=== PATIENT | female | born 1990 | race African-American/Black ===

== ENCOUNTER 2023-03-06 17:33 | Emergency (ER) | payer MEDICAID, SELFPAY ==
[2023-03-06 17:44] VITALS: BP 126/78; RESP 20; TEMP 36.8; O2SAT 98; BMI 39.5
--- NOTE | 2023-03-06 18:14 | ED_ITS ---
HPI - Female Genitourinary General Time Seen by Provider: 18:14 Date Seen: 03/06/23 Chief complaint: Urogenital Problems, Female Stated complaint: vaginal itching Time Seen by Provider: 03/06/23 18:13 Source: patient and RN notes reviewed Mode of arrival: ambulatory Limitations: no limitations History of Present Illness HPI Narrative: This 32-year-old female is about 36 weeks , states her due date is April 03. She recently moved from [place] to [place], will be planning on delivering here at [place]. She will be following up at [facility]. She is currently with her 4th child, she will have for boys after his . She is coming in because she feels an area that is protruding from her rectum, she feels it with wiping, wonders if she has had a hemorrhoid. She also is concerned as she feels itchy and somewhat swollen externally around the labia. At the end of January, she completed of Monistat 7 course as she was having thicker whitish discharge and was itching. Symptoms resolved for few days but started to return. 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 She is feeling more pelvic pressure but no contractions or labor. When she urinates she will feel little discomfort externally over the labia from the urine but no dysuria itself. She feels the baby moving. She does not have any history of STIs nor any acute concerns. She has not had intercourse for the duration of this . She admits the vaginal discharge is diminished from what it was in January. elicited complaint: vaginal discharge, genital swelling and genital itching Expected Date of Delivery: 04/03/23 Related Data : 4 Para: 3 Home Medications Medication Instructions Recorded Confirmed comb no.42-folic acid PO 03/06/23 Allergies Allergy/AdvReac Type Severity Reaction Status Date / Time No Known Drug Allergies Allergy Verified 03/06/23 17:43 Review of Systems Narrative: As per HPI. PFSH PFS Social History Smoking Status: Former smoker Do you use any of these nicotine containing products: None Second hand tobacco smoke exposure: No How often do you have a drink containing alcohol: monthly or less How many standard drinks containing alcohol do you have on a typical day: 1 or 2 How often do you have six or more drinks on one occasion: Never AUDIT-C Alcohol total score: 1 Non-prescribed substance use: denies use service: No Exam Const: Vital Signs, click to edit/add: Vital Signs - 24 hr 03/06/23 17:44 Temperature 98.2 F Respiratory Rate 20 Blood Pressure [Le ft Forearm] 126/78 Pulse Oximetry 98 Oxygen Delivery Me thod Room Air This 32-year-old female is gravid, abdomen is nontender. Palpate no inguinal adenopathy. External genitalia appear normal, see no vaginal rash or irritation. Despite her feeling like her labia are swollen, I do not perceive any significant peroneal swelling or labial swelling. There is certainly no rash, no lesions or vesicles or ulcerations. There is a scant amount of whitish discharge that actually looks normal, note no odor. Speculum exam is done and she has normal healthy pink looking vaginal tissue with scant amount of nonodorous whitish discharge. She was seen in exam room 4, cervix is higher than what I can reach with the speculum. Bimanual exam done and cervix is high in posterior, cannot reach it, certainly does not feel significantly opened. She has a non thrombosed, non erythematous hemorrhoid noted. Documenting provider has reviewed patient's vital signs: yes Course Course ED Course: Wet prep was collected looking for bacterial vaginosis or yeast. I see no evidence of any other type of infection, no evidence of any lesions that would suggest an STI like herpes. We reviewed the benign hemorrhoid, did discuss her concerns with wiping. Did recommend getting some sensitive baby wipes for cleaning. Reevaluation(s) Time of Reevaluation #1: 19:18 Reevaluation #1: Reviewed with patient that her wet prep is not showing any evidence of yeast or bacterial vaginosis. She will provide a UA. I am awaiting to confer with OB on-call but she is currently delivering a baby. Time of Reevaluation #2: 20:21 Reevaluation #2: Patient had 2+ glucose in her urine, is concentrated. Confirmed normal Accu- Chek of 114. She states she did do the glucose drink during and was normal. She is not diabetic. Have spoken with Dr. Angulo from OB. She does not have anything else recommend, states to offer the patient reassurance. There can be hormonal changes and pelvic pressure changes from the . This was relayed to the patient. We did review her UA. Vital Signs Vital signs: Initial Vital Signs Temperature 98.2 F 03/06/23 17:44 Temperature Source Temporal Artery Scan 03/06/23 17:44 Pulse Rhythm Regular 03/06/23 17:44 Respiratory Rate 20 03/06/23 17:44 Blood Pressure 126/78 03/06/23 17:44 Blood Pressure Mean 94 03/06/23 17:44 Blood Pressure Position Sitting 03/06/23 17:44 Pulse Oximetry 98 03/06/23 17:44 Oxygen Delivery Method Room Air 03/06/23 17:44 Vital Signs Temperature 98.2 F 03/06/23 17:44 Respiratory Rate 20 03/06/23 17:44 Blood Pressure 126/78 03/06/23 17:44 Pulse Oximetry 98 03/06/23 17:44 Oxygen Delivery Method Room Air 03/06/23 17:44 Temperature 98.2 F 03/06/23 17:44 Respiratory Rate 20 03/06/23 17:44 Blood Pressure 126/78 03/06/23 17:44 Pulse Oximetry 98 03/06/23 17:44 Oxygen Delivery Method Room Air 03/06/23 17:44 MDM - Female Genitourinary Lab Data Attestation: I reviewed the patient's lab results. Labs: Lab Results 03/06/23 03/06/23 Range/Units 18:24 19:31 Urine Color Yellow (Yellow) Urine Appearance Clear (Clear) Urine pH 5.5 (5.0-8.5) Ur Specific [place] >= 1.030 (1.000-1.030) Urine Protein 2+ A (Negative) Urine Glucose (UA) 2+ A (Negative) Urine Ketones Negative (Negative) Urine Blood Negative (Negative) Urine Nitrite Negative (Negative) Urine Bilirubin Negative (Negative) Urine Urobilinogen 1.0 (0.2-1.0) Ur Leukocyte Esterase Negative (Negative) Urine RBC 0-2 (0-2) Urine WBC 2-5 (0-5) Ur Squamous Epith Cells Moderate A (None-Few) Urine Bacteria Moderate A (None) Vaginal Trichomonas No Trichomonas Seen (None Seen) Vaginal Yeast No Yeast Seen (None Seen) Vaginal Clue Cells <20% Clue Cells Seen (None Seen) Critical Care Time Critical Care Time Critical Care Time: No Discharge Plan Discharge Clinical Impression: Perineal irritation in female, , Hemorrhoid Patient Disposition: Home, Self-Care Condition: Stable Instructions: Hemorrhoids (ED), at 35 to 38 Weeks (ED) Additional Instructions: Follow-up in clinic, get established as soon as possible if you have not done so. If you are having increasing symptoms such as vaginal irritation or drainage, do recommend recheck in clinic this week. Activity Level: Activity as Tolerated Prescriptions: No Action comb no.42-folic acid PO Follow Up/Referrals: Provider,Not a Local [Primary Care Provider] - Stand Alone Forms: Zeer Info Instructions
[2023-03-06 18:46] LABS: Trichomonas No Trichomonas Seen (None Seen); Yeast No Yeast Seen (None Seen)
[2023-03-06 18:47] LABS: Clue Cells <20% Clue Cells Seen (None Seen)
[2023-03-06 19:38] LABS: Appearance Urine Clear (Clear); Bilirubin Urine Negative (Negative); Blood Urine Negative (Negative); Color Urine Yellow (Yellow); Glucose Urine 2+ (Negative); Ketones Urine Negative (Negative); Leukocyte Esterase Urine Negative (Negative); Nitrite Urine Negative (Negative); Protein Urine 2+ (Negative); Specific Gravity Urine >= 1.030 (1.000-1.030); pH Urine 5.5 (5.0-8.5)
[2023-03-06 19:47] LABS: Bacteria Urine Moderate; RBC Urine 0-2 (0-2); Squamous Epithelial Cell Urine Moderate (None-Few)
== END 2023-03-06 20:41 | disposition home or self-care (01) ==
PROVIDERS: Emergency Provider Family Medicine
DX: R10.2 Pelvic and perineal pain (principal); K64.8 Other hemorrhoids; Z3A.36 36 weeks gestation of pregnancy
CPT/HCPCS: 81001; 87086; 87210; 99283

== ENCOUNTER 2023-03-13 12:41 | Outpatient (CLI) | payer MEDICAID, SELFPAY | END 2023-03-13 12:42 | disposition home or self-care (01) | LOC: AMB 03-15 15:27 | PROVIDERS: Visit Provider Student in an Organized Health Care Education/Training Program | DX: O47.03 False labor before 37 completed weeks of gestation, third trimester (principal); Z3A.36 36 weeks gestation of pregnancy | CPT/HCPCS: A0425; A0427 ==

== ENCOUNTER 2023-03-13 14:25 | Inpatient (IN) | payer MEDICAID, SELFPAY ==
[2023-03-13] VITALS (20 sets, daily range): BP systolic 109–143; BP diastolic 63–95; PULSE 66–100; RESP 16–17; TEMP 36.6–37.4; O2SAT 81–99
--- NOTE | 2023-03-13 13:29 | CRLHL7_ITS ---
For Patients: As a result of the Century Cures Act, medical imaging exams and procedure reports are released immediately into your electronic medical record. You may view this report before your referring provider. If you have questions, please contact your health care provider. INDICATION: LABOR, LIMITED CARE, GROWL AND EVAL PLACENTA COMPARISON: Not available TECHNIQUE: Real time guardado scale imaging of the fetus was performed. FINDINGS: Sonographic imaging demonstrates a single living intrauterine gestation. Fetus demonstrates a regular cardiac rate of 155 beats per minute. Fetus has a vertex position. The placenta lies fundal posterior. Amniotic fluid volume appears normal and there is a single deepest vertical pocket: 4.3 cm. The estimated weight is 4128gm which lies at the greater than 97th %. BPD, HC and AC all greater than 97th percentile. FL less than 3rd percentile. The HC/AC ratio measures 1.06 range (0.92-1.05). hydrocephalus is present with the cerebral ventricles measuring approximately 4 cm. Cardiac anomalies are also suspected on the cine clips. The cervix is completely open and contains fluid/debris. IMPRESSION: Completely open cervix which is filled with fluid and debris. Amniotic fluid volume appears normal with SDP 4.3 cm. Placenta is fundal and posterior. Sonographic gestational age 36 weeks 6 days and sonographic due date 04/04/2023. Estimated weight greater than 97th percentile. Abdominal circumference greater than 97th percentile. hydrocephalus and probable cardiac anomalies. Dictated by Shashi Santos MD @ 03/13/2023 3:00:31 PM (Electronically Signed)
[2023-03-13 14:10] LABS: Appearance Urine Cloudy (Clear); Bilirubin Urine Negative (Negative); Blood Urine Negative (Negative); Color Urine Dark yellow (Yellow); Glucose Urine Trace (Negative); Ketones Urine Negative (Negative); Leukocyte Esterase Urine Negative (Negative); Nitrite Urine Negative (Negative); Protein Urine 1+ (Negative); Specific Gravity Urine >= 1.030 (1.000-1.030); Urobilinogen Urine 0.2 (0.2-1.0)
[2023-03-13 14:36] LABS: WBC Clumps Urine Few
[2023-03-13 14:37] LABS: Bacteria Urine Moderate; Fine Granular Casts Urine Moderate; Squamous Epithelial Cell Urine Moderate (None-Few)
[2023-03-13] MEDS: LACTATED RINGERS 1000 ML 1,000 ML 125 ML IV ×2 (14:40→15:07)
[2023-03-13 14:58] LABS: Basophils Absolute Auto 0.04 K/uL (0.00-0.30); Basophils Percent Auto 0.4 % (0.0-3.0); Eosinophils Absolute Auto 0.06 K/uL (0.00-0.50); Eosinophils Percent Auto 0.6 % (0.0-7.0); Immature Granulocytes Abs Auto 0.47 K/uL (0.00-0.30); Immature Granulocytes Pct Auto 4.8 %; Mean Corpuscular HGB Conc 31 gm/dL (32-36); Mean Corpuscular Hemoglobin 26 pg (26-34); Mean Corpuscular Volume 82 fL (80-100); Monocytes Percent Auto 9.5 % (0.0-11.0); Neutrophils Absolute Auto 6.78 K/uL (1.7-7.0); Neutrophils Percent Auto 69.7 % (42.0-72.0); Platelet Count* 235 K/uL (140-440); RDW Coefficient of Variation % 15.4 % (11.5-15.5); Red Blood Count 3.92 m/uL (4.00-5.20); White Blood Count* 9.73 K/uL (4.50-11.00)
[2023-03-13 14:59] LABS: Slide Review Reflex Yes
[2023-03-13 15:01] LABS: Amphetamine Screen Urine Negative (Negative); Barbiturate Screen Urine Negative (Negative); Benzodiazepines Screen Urine Negative (Negative); Cannabinoid Screen Urine Negative (Negative); Cocaine Screen Urine Negative (Negative); Methadone Screen Urine Negative (Negative); Methamphetamines Screen Urine Negative (Negative); Opiate Screen Urine Negative (Negative); Oxycodone Screen Urine Negative (Negative); Phencyclidine Screen Urine Negative (Negative); Tricyclic Antidepressant Urine Negative (Negative)
--- NOTE | 2023-03-13 15:03 | PM.OBHPLI ---
OB - H&P: HPI Labor/Induction History of Present Illness Date Seen: 03/13/23 Chief Complaint: The patient is a 32 year old 4 para 3003 at 37 0/7 weeks gestation by late second trimester US, who presents in labor with desire to TOLAC. Patient with poor care, very difficult social situation. Patient recently moved to [place] from [place]. Started care late at [facility] in [place] and then moved to [facility] in [place]. is dated by US at 26 6/7 weeks, that showed a low lying posterior placenta, suboptimal visualization of nose, lips, spine, remainder of anatomy normal. There is a follow-up ultrasound documented from 01/22/2023, gestational age described as 29 weeks 6 days, posterior placenta, not previa, growth 39 percentile. Patient states that uterine contractions started since yesterday and progressed today until she was unable to tolerate them. Patient has no support system and no transportation. Patient called 911 and was brought in to the closest hospital. Upon evaluation patient is found with regular painful uterine contractions and cervix dilated at 7cm. At arrival I had asked for performance of US due to no evidence of care, I was called in by US analytical laboratory technician and I was told that baby had hydrocephalus, short femur and that she could not evaluate cardiac structures well. I tried to clarify with patient as she told me she was seeing a specialist, patient tells me that she had US and was told everything with baby was normal. Care labs: Had 2 appointments with [facility], then 2 appointments with [facility]: 01/13/2023: Blood type and group O positive, antibody screen negative, hepatitis-B surface antigen nonreactive, hepatitis-C antibody nonreactive, treponema pallidum nonreactive, hemoglobin 10.3, platelets [id number], protein in urine 30, glucose in urine 100, ketones negative, nitrates negative, rubella immune, chlamydia and gonorrhea negative, varicella non immune, HIV non reactive 02/05/2023: 1 hour GTT: 185, no 3 hour GTT performed. EKG: Normal sinus rhythm LMP uncertain 07/22/22 Chief complaint: maternity : 4 Para: 3 Narrative: Diego Hinojosa is a 32 year old female History of Present Dating criteria: other (Late 2nd trimester ultrasound) care: limited care Ultrasounds: normal mid trimester US Abnormal ultrasound findings: Hydrocephalus, short femur. complications comment: Limited care, GDM uncontrolled-untreated, previous C/Sx1 Narrative: Limited care,Difficult social situation, no transportation hydrocephalus-diagnosed today, macrosomia GDM-uncontrolled, untreated Previous C/S x 1, desiring VTOLAC History x 1 BA-rare use of albuterol History of cholecystectomy Labs Blood type: O (+) positive Rubella: immune RPR/VDLR: nonreactive GBS status: unknown HBsAG: negative Review of Systems Status of ROS: Reports: 10 or more systems reviewed and unremarkable except as noted in History and below Meds Home Medications and Allergies Home Medications Medication Instructions Recorded Confirmed Type comb no.42-folic acid PO 03/06/23 History Allergies Allergy/AdvReac Type Severity Reaction Status Date / Time No Known Drug Allergies Allergy Verified 03/13/23 13:37 OB - H&P: Exam Physical Exam: Vital signs: Pulse BP 91 136/79 03/13/23 13:33 03/13/23 13:33 Narrative: VITAL SIGNS: As noted above. GENERAL APPEARANCE: Alert, cooperative female in no acute distress. MOOD & AFFECT: Normal. ABDOMEN: Gravid, non tender : 7cm/100%/Vx/-5 EXTREMITIES: Nonedematous. Well perfused. Nontender. OB - Results Labs Labs: Short CBC 03/13/23 Range/Units 14:40 WBC 9.73 (4.50-11.00) K/uL Hgb 10.0 L (12.0-16.0) gm/dL Hct 32.0 L (33.0-51.0) % Plt Count 235 (140-440) K/uL Urine 03/13/23 Range/Units Unknown Urine Color Dark yellow (Yellow) Urine Appearance Cloudy A (Clear) Urine pH 6.0 (5.0-8.5) Ur Specific [place] >= 1.030 (1.000-1.030) Urine Protein 1+ A (Negative) Urine Glucose (UA) Trace A (Negative) Imaging OB US: Attestation: I have reviewed the pertinent imaging results. OB - Problem Based A/P Additional Plan (1) hydrocephalus affecting management of mother in [place] : Status: Acute Plan Recommend delivery via delivery due to diagnosis of hydrocephalus. Discussed that baby will need to be transferred to a higher level of care, she is upset about this. I discussed with her that ideally we would like to transfer both of them but unfortunately she is in labor. Discussed repeat procedure, risks of surgery, patient accepts blood transfusions in the case of an emergency. Discussed risks of infection, damage to nearby organs, blood clots. Informed consent is obtained and patient agrees to proceed with surgery.
[2023-03-13 15:04] LABS: Albumin* 3.7 g/dL (3.3-5.0); Chloride* 105 mmol/L (96-114); Sodium* 135 mmol/L (135-149)
[2023-03-13 15:05] LABS: Potassium* 4.2 mmol/L (3.6-5.1)
[2023-03-13 15:07] LABS: Anion Gap 8 mEq/L (7-15); Aspartate Amino Transferase* 24 U/L (12-35); Bilirubin Total* 0.2 mg/dL (0.1-1.5); Carbon Dioxide* 22 mmol/L (20-32); Creatinine* 0.5 mg/dL (0.5-1.5); Estimated Glomerular Filt Rate 128 ml/min; Total Protein* 7.1 g/dL (6.0-8.3)
[2023-03-13 15:08] LABS: Alanine Aminotransferase* 15 U/L (4-35); Alkaline Phosphatase* 442 U/L (40-150); Blood Urea Nitrogen* 5 mg/dL (5-24); Calcium* 9.8 mg/dL (8.4-10.6); Glucose* 168 mg/dL (60-115)
[2023-03-13] MEDS: INSULIN INF 100 UNIT/100 ML 100 UNIT/100 ML BAG IVPB (15:09)
[2023-03-13] MEDS: AZITHROMYCIN 500 MG in 0.9 % SODIUM CHLORIDE 250 ml 250 ML 255 MG IVPB (15:10)
[2023-03-13] MEDS: CEFAZOLIN 1 GM inj 3 GM IVP (16:02)
[2023-03-13] MEDS: METHYLERGONOVINE MALEATE 0.2 MG/ML INJ IV (16:41)
[2023-03-13] MEDS: LACTATED RINGERS 1000 ML 1,000 ML IV (17:15)
--- NOTE | 2023-03-13 17:58 | P.OBPRC_ITS ---
Procedure Date of procedure: 03/13/23 Pre-op diagnosis: Previous section x1, in labor, hydrocephalus Post-op diagnosis: same Procedure Done: Global Will [facility] bill your pro fee for this procedure?: Yes Blood Loss Measurement Type: QBL (430) Bakri Used: No IV fluids (mL): 1,400 Urine Output (mL): 300 Urine Output Comment: Concentrated urine Surgeon: Marquita Thornton MD Veterinary Pharmacologist: Clara Rodriguez MD Anesthesia Type: Spinal Findings: FINDINGS: Live-born male , Vertex presentation, Apgars 6 and 7 at 1 and 5 minutes respectively. weight pending. Thick serosal adhesion between lower uterine segment left side and bladder serosa. Procedure Name: Repeat low vertical section Procedure Description: PROCEDURE: After obtaining informed consent, the patient was taken to the operating room where spinal anesthesia was obtained and found to be adequate. She was prepared and draped in the normal sterile fashion in the dorsal supine position with a leftward tilt. A Pfannenstiel skin incision was made with a scalpel along the line of the patient's previous Pfannenstiel scar. This incision was carried down to the underlying layer of fascia with the scalpel and Bovie. The fascia was incised in the midline and the incision extended laterally. The superior and inferior aspects of the fascial incision were grasped with Carlos Manuel clamps, elevated and the underlying rectus muscles dissected off sharply and with electrocautery. The rectus muscles were then in the midline. Thick adhesion from left side of lower uterine segment to bladder serosa, a clear window was found between adhesion and serosa posteriorly, utilizing Marybeth clamps the adhesion was clamped, cut and suture ligated. Hemostasis was secured. I attempted performance of a bladder flap but adhesions seemed thickened and bleed easily, decision was made not to proceed with bladder flap. The Robin O retractor was then placed into the incision. The lower uterine segment was then incised in a vertical fashion with the scalpel and extended cephalad and caudally. Upon entry into the uterus, meconium stained amniotic fluid was noted. The 's head was delivered atraumatically, followed by the remainder of the 's body. The cord was doubly clamped and cut, and the was immediately handed off the field for evaluation. The placenta was delivered spontaneously with umbilical cord traction and fundal massage. The uterus was cleared of all clots and debris. The uterus was exteriorized. The uterine incision was reapproximated in a running locking fashion with 0 Vicryl suture in 3 layers. There was a small extension horizontally of the incision towards the right lower uterine segment of about 2- 3 cm. This was repaired with Vicryl 0 suture and hemostasis secured. The vertex of the hysterotomy was more than 4-5 cm from cornua. Although I would NOT recommend for patient to labor again due to hysterotomy extension. Uterus had episodes of poor tone, this was treated with IV Oxytocin, 800mcg of buccal Cytotec and 1 dose of Methergine. I had also asked for 1g of TXA after cord clamp since I was preparing for heavy bleeding in the setting of overly distended uterus. In total 2g of TXA were utilized. [place] was utilized to further secure small oozing mostly from adhesion areas. Again, hemostasis secured. The gutters were inspected and cleared of blood clots. All instruments and retractors were removed. The anterior peritoneum was reapproximated in a running fashion with a 3-0 Vicryl suture. The subfascial tissues were carefully inspected and hemostasis assured. The fascia was reapproximated in a running fashion with a looped 0 PDS suture. The subcutaneous tissues were copiously irrigated. Hemostasis was assured. The subcutaneous fat layer was reapproximated with sutures of 3-0 Vicryl. The skin was closed in a subcuticular fashion with 4-0 Monocryl. LiquiBand and dressing were applied. The patient tolerated the procedure well. Sponge, lap, needle, and instrument counts were reported as correct x2. The patient was taken to the recovery room, awake, and in stable condition. She did receive 2 grams of IV Ancef and 500mg of Azithromycin preoperatively. Complications: None Pathology: specimen obtained, sent to pathology (Placenta to pathology, placental cultures also obtained and cytogenetic also ordered) Surgery Debrief Performed: Yes Surgery Debrief Comment: Clarified procedure performed, QBL, pathology specimen, answered questions or concerns Condition: stable Disposition: floor
--- NOTE | 2023-03-13 18:48 | W.ANESCHARGE ---
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
--- NOTE | 2023-03-13 18:49 | P.NB_ITS ---
Nerve Block Nerve Block Time Seen by Provider: 17:50 Date Seen: 03/13/23 Type of block requested by surgeon for post-operative analgesia: TAP Side: bilateral Time out performed: Yes Verification of patient name: Yes Verification of date of : Yes Site marking: site marked Name of person performing procedure: Hunter Nadja Continuous monitoring Was continuous monitoring of O2 sat, B/P, conveyor monitor, recorded every 15 minutes?: Yes Procedure Checklist: sterile prep, needles and gloves Ultrasound guided. Images saved: Yes Medications given in 5ml increments after negative aspiration: Marcaine %: 0.25 mL: 30 Needle gauge: 21 and Exparel mL: 10 Needle gauge: 21 Patient tolerated procedure well: Yes Additional comments: Injected in 5mL increments after negative aspiration Block Charges Block Charge (with Pro Fee): TAP Bilateral Use of Ultrasound Machine for Block: Yes- US Guidance/pain block
[2023-03-13] MEDS: KETOROLAC 30 MG/ML inj IVP (23:06)
[2023-03-14] VITALS (23 sets, daily range): BP systolic 107–139; BP diastolic 70–83; PULSE 86–97; RESP 16–20; TEMP 36.7–37.3; O2SAT 95–98
[2023-03-14] MEDS: KETOROLAC 30 MG/ML inj IVP ×4 (05:07→22:44)
[2023-03-14] MEDS: ENOXAPARIN 40 MG/0.4 ML INJ SUBCUT (05:31)
[2023-03-14] MEDS: ACETAMINOPHEN 500 MG TABLET 1000 MG PO ×3 (06:42→22:44)
--- NOTE | 2023-03-14 07:40 | PC.NURSE ---
This RN submitted a public health nurse referral form on the [facility] health website on 03/14/23 at 0740. A confirmation screen popped up when RN hit submit that said Your Form Has Been Submitted Successfully.
[2023-03-14] MEDS: DOCUSATE SODIUM 100 MG CAPSULE PO (08:09)
[2023-03-14] MEDS: diphenhydrAMINE 50 MG/ML inj 12.5 MG IVP (08:09)
--- NOTE | 2023-03-14 08:18 | PM.OBPNVD1 ---
OB - PN:Subj Subjective Time Seen by Provider: 08:18 Date Seen: 03/14/23 Narrative: Ms. Hinojosa is a 32yo seen on POD1 from repeat delivery. Delivery was indicated in the setting of labor, with newly diagnosed ventriculomegaly and hydrocephalus. A low vertical uterine incision was made, delivery itself was uncomplicated. She had intemittent atony in the OR, without PPH, where uterotonic agents and TXA were administered. Diego is feeling well this morning. She notes her pain is well controlled. Small volume vaginal bleeding. Has been able to tolerate p.o. solids and liquids, notes nausea/vomiting. She has been up to ambulate x1 without dizziness or lightheadedness. Taveras catheter is in place, adequate urine output. Passing gas. No lower extremity pain, erythema or swelling. Diego intends to breastfeed baby . She has not yet started pumping - encouraged her to do so every 2-3 hours to stimulate her milk to come in. She notes is doing very well at the [facility]. He is breathing on his own and his platelets have reportedly stabilized. She notes they are doing a brain MRI today and will likely proceed with shunting. Support provided. Diego affirmed that she does not have reliable transportation and this was a significant barrier to care. She does have stable housing, where she lives with her other 3 children (ages 3 - 15). She notes having no social support or family locally, FOB rasta Cuevas is not currently involved. She is open to visiting with our drug abuse social worker for resources/support, I encouraged her to do the same with the [facility] for when discharge is upcoming (particularly with car seat/transportation for him home eventually). OB - PN: Obj Exam Physical Exam: Vital signs: Temp Pulse Resp BP Pulse Ox O2 Del Method 98.9 F 86 17 113/74 97 Room Air 03/14/23 05:00 03/14/23 07:58 03/14/23 07:58 03/14/23 07:58 03/14/23 07:58 03/14/23 07:58 Narrative: VITAL SIGNS: Noted above. GENERAL APPEARANCE: Alert, cooperative female in no acute distress. ABDOMEN: Soft, nondistended and nontender. The uterine fundus is palpable at umbilicus. incision is covered with dressing, clean/dry. EXTREMITIES: Nonedematous, well-perfused, nontender bilaterally. Urinary Catheter Management: Urethral: Cath placed during this visit: yes Urethral indwelling: Yes Reason for continuing: surgical procedure Insertion date: 03/13/23 OB - PN: Obj Data Labs Labs: Laboratory Results - last 24 hr 03/13/23 03/13/23 03/14/23 14:40 Unknown 07:20 WBC 9.73 RBC 3.92 L Hgb 10.0 L 9.0 L Hct 32.0 L MCV 82 MCH 26 MCHC 31 L RDW Coeff of Live 15.4 Plt Count 235 Neut % (Auto) 69.7 Lymph % (Auto) 15.0 L [place] % (Auto) 9.5 Eos % (Auto) 0.6 Baso % (Auto) 0.4 Neut # (Auto) 6.78 Lymph # (Auto) 1.50 [place] # (Auto) 0.90 Eos # (Auto) 0.06 Baso # (Auto) 0.04 Abs Immat Gran (auto) 0.47 H Imm/Tot Granulo (auto) 4.8 Sodium 135 Potassium 4.2 Chloride 105 Carbon Dioxide 22 Anion Gap 8 BUN 5 Creatinine 0.5 Estimated GFR 128 Glucose 168 H Calcium 9.8 Total Bilirubin 0.2 AST 24 ALT 15 Alkaline Phosphatase 442 H Total Protein 7.1 Albumin 3.7 Urine Color Dark yellow Urine Appearance Cloudy A Urine pH 6.0 Ur Specific [place] >= 1.030 Urine Protein 1+ A Urine Glucose (UA) Trace A Urine Ketones Negative Urine Blood Negative Urine Nitrite Negative Urine Bilirubin Negative Urine Urobilinogen 0.2 Ur Leukocyte Esterase Negative Urine RBC 2-5 A Urine WBC 5-10 A Urine WBC Clumps Few A Ur Squamous Epith Cells Moderate A Urine Bacteria Moderate A Fine Granular Casts Moderate A Urine Opiates Screen Negative Ur Oxycodone Screen Negative Urine Methadone Screen Negative Ur Propoxyphene Screen Negative Ur Barbiturates Screen Negative U Tricyclic Antidepress Negative Ur Phencyclidine Scrn Negative Ur Amphetamines Screen Negative U Methamphetamines Scrn Negative U Benzodiazepines Scrn Negative Urine Cocaine Screen Negative U Marijuana (THC) Screen Negative Blood Type O Positive Antibody Screen NEGATIVE Crossmatch (AHG) See Detail OB - PN: A/P Delivery Assessment and Plan (1) hydrocephalus affecting management of mother in shannon : Status: Acute (2) Elevated blood pressure reading without diagnosis of hypertension: Status: Acute (3) Previous section: Status: Acute (4) Bronchial asthma: Status: Acute (5) Elevated random blood glucose level: Status: Acute Plan day: 1 Comments: Ms. Hinojosa is a 32yo seen on POD1 from repeat performed in the setting of labor with hydrocephalus/ventriculomegaly. From a post-op perspective, Diego is doing very well and meeting appropriate milestones. Encouraged her to eat breakfast, ambulate and get taveras removed this morning. Encoraged Diego and bedside RNs to work on support with pumping. Problems/plans as below: - Anemia: She does have evidence of acute on chronic anemia, Hgb is 9 (from 10) today. Plan to start iron supplement and encouraged iron rich foods. VS WNL, adequate UOP. Ambulated without difficult x1, plan to continue to advance activity this morning. Recheck Hgb PRN. - Elevated BP: She had several mild range BPs but does not meet criteria for HTN disorder (not by 4 hours) - will continue to monitor BPs diligently. Labs on admission were WNL. - Elevated BG vs GDM: She had a random elevated blood glucose, ?gestational diabetes yesterday, where her fasting BG this morning was 98mg/dL. Continue to follow BG per protocol. - Transportation difficulty: Consult drug abuse social worker today, please assist with dismissal planning and particularly transportation. If available, community resources for support and/or NICU visits would be appreciated as well. - Mood support: Diego is coping appropriately with Young Harris's unexpected medical condition. She notes he is doing very well and has been in communication with his NICU team. Disposition: Anticipate DC to home on POD2-3 pending her recovery
[2023-03-14 11:13] LABS: Slide Review Acceptable Review (Acceptable)
[2023-03-14 11:36] LABS: Strep B DNA Probe Negative (Negative)
[2023-03-14 11:37] LABS: Strep B Susceptibility Needed? No
[2023-03-15] MEDS: OXYCODONE 5 MG TABLET PO ×2 (03:00→10:00)
[2023-03-15] MEDS: IBUPROFEN 600 MG TABLET PO ×2 (03:01→09:03)
[2023-03-15 03:03] VITALS: BP 136/81; PULSE 86; RESP 18; TEMP 36.7; O2SAT 98
[2023-03-15 06:08] VITALS: BP 112/69; PULSE 90; RESP 16; TEMP 36.8; O2SAT 97
[2023-03-15] MEDS: ACETAMINOPHEN 500 MG TABLET 1000 MG PO (06:11)
[2023-03-15] MEDS: ENOXAPARIN 40 MG/0.4 ML INJ SUBCUT (06:11)
[2023-03-15] MEDS: DOCUSATE SODIUM 100 MG CAPSULE PO (06:11)
[2023-03-15 08:29] VITALS: BP 121/79; PULSE 96; RESP 20; TEMP 36.8; O2SAT 97
--- NOTE | 2023-03-15 08:46 | PM.GYNDS1 ---
DS: Providers Provider Time Seen by Provider: 08:05 Date Seen: 03/15/23 Date of admission: 03/13/23 14:25 Primary care physician: Not a Local Provider Admitting Clinician: Christiana Thornton MD Consults: 03/13/23 14:28 Consult to Immigration Paralegal [CONS] Routine Comment: Reason for Consult:: Social Service Consult 03/13/23 15:33 Consult to Immigration Paralegal [CONS] Routine Comment: Reason for Consult:: Social Service Consult Attending Physician on discharge: Eileen Rodriguez MD DS: Diagnosis Discharge Diagnosis (1) care and examination of lactating mother: Status: Acute (2) Elevated random blood glucose level: Status: Acute (3) Elevated blood pressure reading without diagnosis of hypertension: Status: Acute (4) hydrocephalus affecting management of mother in shannon : Status: Acute (5) Previous section: Status: Acute (6) Bronchial asthma: Status: Acute (7) Hemorrhoid: Status: Acute [employer]-Discharge Summary Hospital Course Hospital Course Narrative: Patient is a 32 year old admitted on 03/13/23 for spontaneous onset of labor as a TOLAC. course complicated by limited care, new diagnosis of ventriculomegaly and hydrocephalus, obesity, asthma, anemia, suspected GDM. Indication for surgery: Repeat, hydrocephalus Intraoperative findings were notable for hydrocephalus requiring low vertical hysterotomy, delivery was unremarkable. Intermittent atony was noted requiring uterotonics, no PPH. She had an uncomplicated surgery. Postoperative course has been uneventful. Vitals have been stable. She has remained afebrile. Today, on postoperative day 2, she reports the pain is well controlled. She has been able to ambulate Without difficulty. She is tolerating regular diet. She is passing flatus. Clement catheter has been removed, and she is voiding without difficulty. Of note, Diego has had several elevated fasting BG values prompting concern for diabetes outside of . She has never received this diagnosis. Recommended inpatient 2 hour GTT, however she is no longer fasting this morning and desires discharge to home. She is agreeable for 2 and 6 week visits with us (social work to coordinate rides) where she can then get her 2 hour GTT at that time. She has no headaches, visio changes or RUQ pain - reviewed elevated BP without hypertension and return precautions. Standard return precautions reinforced for pain, bleeding, fevers/chills, nausea/vomiting, signs of VTE and mood reinforced. Baby is doing well, he is scheduled for V/P shunting in the next few days. Time Spent with Patient Time attestation: Total time spent providing and/or coordinating discharge services: Time spent: Less than 30 minutes [employer] - Exam Physical Exam: Vital signs: Temp Pulse Resp BP Pulse Ox O2 Del Method 98.3 F 96 16 121/79 97 Room Air 03/15/23 08:29 03/15/23 08:29 03/15/23 06:08 03/15/23 08:29 03/15/23 08:29 03/15/23 08:29 Narrative: General: Alert and oriented, in no acute distress Abdomen: Soft, mild gaseous distension. Appropriately tender for post-op state, no rebound or guarding. Incision is well approximated without erythema or drainage. Fundus at 1 below U. Extremities: Non-tender, trace edema bilaterally [employer] - DS: Data Data Completed and Pending Labs on day of discharge: Labs from last 24 hours 03/13/23 03/13/23 Unknown 14:40 Diff Slide Review Acceptable Review Group B Strep DNA Negative Preliminary micro results at discharge 03/13/23 Unknown Aerobic Culture - Preliminary Placenta - Other Anaerobic Culture - Preliminary Culture in Progress Procedures Procedures: Procedures Operation Date: 03/13/23 15:45 Actual Procedure Side Surgeon p REPEAT LOW VERTICAL Section Christiana Thornton MD Discharge Plan Discharge Disposition: Home, Self-Care Date of Admission: 03/13/23 14:25 Attending Provider on Discharge: Lucy Rodriguez Primary Care Provider: Provider,Not a Local Condition: Stable Anticipated Discharge Date/Time: 03/15/23 08:47 Discharge Medications: New Poly-Iron 150 Forte 150-25-1 mg-mcg-mg Capsule 1 cap PO 3XW Qty: 45 0RF acetaminophen 500 mg Tablet 1,000 mg PO Q6H PRN (Reason: Pain) Qty: 90 1RF docusate sodium 100 mg Capsule 100 mg PO DAILY Qty: 45 1RF ibuprofen 600 mg Tablet 600 mg PO Q6H PRN (Reason: Pain) Qty: 90 1RF simethicone 80 mg Tablet,Chewable 160 mg PO Q4H PRN (Reason: Gas) Qty: 45 0RF oxycodone 5 mg Tablet 5 mg PO Q4H PRN (Reason: Pain) Qty: 15 0RF Continued comb no.42-folic acid 1 tab PO DAILY Discharge Orders: Discharge Order (Routine); Ordered 03/15/23 Ordered By: Lucy Rodriguez Patient Education: OB Over the Counter Medication Information, OB /Breast Feeding Additional Instructions: Discharge instructions were reviewed with the patient including signs and symptoms of infection and home going medications Lifting Restrictions: 20 pounds for 6 weeks No not submerge incision under water X 2 weeks? Nothing vaginally for 6 weeks: no tampons or intercourse Do not drive while taking narcotic pain medication(s) Off Work or School for 8 weeks Symptoms to report to doctor: Bleeding that saturates more than one pad per hour Passing clots larger than the size of a golf ball Pain not relieved by prescribed medication Fever above 100.4 degrees Fahrenheit A foul vaginal odor Difficulty in emotions, mood, and functions Thoughts of hurting yourself and/or Painful, reddened area in your breast Any drainage, redness, or tenderness in your IV/epidural site Severe headache that doesn't improve after taking medications Changes in vision, including temporary loss of vision, blurred vision, and/or light sensitivity Upper abdominal pain (usually under ribs on the right side) Decrease in urination or painful, frequent urinating Chest pain Shortness of breath Tenderness or pain with redness and/swelling in the calf(s) of your leg Headache, vision changes or right upper quadrant pain, excess swelling, feeling off as you had elevated blood pressure without a diagnosis of hypertension 2-week visit: incision check, discuss infant feeding concerns, review control options and screen for anxiety/depression. OF NOTE, this will include 2 hour glucose tolerance test for evaluation of type 2 diabetes. 6-week visit for an annual exam. We have asked social work to assist with coordination of a ride. consultation services are available to all mothers and babies for the first year after delivery.? To make an appointment, please call [phone]. Discharge Diet: Regular Follow Up Appointments: Lucy Rodriguez MD [Staff Physician] - Provider,Not a Local [Primary Care Provider] - Forms: [employer] Info Instructions
== END 2023-03-15 11:54 | disposition home or self-care (01) | DRG 540 ==
LOC: OB OUT 14:26 → OB 14:26
PROVIDERS: Admitting Provider Obstetrics & Gynecology; Visit Provider Obstetrics & Gynecology
PROC: 10D00Z1 Extraction of Products of Conception, Low, Open Approach (ICD-10-PCS; CPT 59514; principal; 2023-03-13 15:30)
DX: O34.211 Maternal care for low transverse scar from previous cesarean delivery (principal); O35.06X0 Maternal care for (suspected) central nervous system malformation or damage in fetus, hydrocephaly, not applicable or unspecified; O24.429 Gestational diabetes mellitus in childbirth, unspecified control; G89.18 Other acute postprocedural pain; O62.2 Other uterine inertia; R03.0 Elevated blood-pressure reading, without diagnosis of hypertension; J45.909 Unspecified asthma, uncomplicated; Z59.82 Transportation insecurity; Z63.8 Other specified problems related to primary support group; O22.43 Hemorrhoids in pregnancy, third trimester; O99.02 Anemia complicating childbirth; D64.9 Anemia, unspecified; Z3A.37 37 weeks gestation of pregnancy; Z37.0 Single live birth
CPT/HCPCS: 01961; 36415; 64488; 76815; 76942; 80053; 80306; 81003; 81015; 82962; 85018; 85025; 86850; 86900; 86901; 86922; 87070; 87075; 87081; 87086; 87205; 87653; 88233; 88262; 88307; 99140; A9270; C9290; J0456; J0665; J0690; J1100; J1200; J1650; J1885; J2210; J2274; J2371; J2405; J2590; J3590; J7050; J7120

== ENCOUNTER 2023-10-26 13:45 | Outpatient (RCR) | payer BC, SELFPAY ==
--- NOTE | 2023-09-22 16:20 | PT.OPEX ---
PT [place] Outpatient Eval PT [facility] Outpatient Eval Start: 09/22/23 11:32 Freq: Status: Active Protocol: Document 09/22/23 11:33 ALEX (Rec: 09/22/23 16:17 ALEX [id number]) E-signed By Vandana Telles PT Physical Therapy Outpatient Evaluation Insurance Information Recert Due Date 12/20/23 Insurance Name Medicaid,Blue Cross/Blue Shield Medical Diagnosis KNEE PAIN Treating Diagnosis KNEE PAIN Referring MD DR. MIRANDA MILLER Subjective Subjective QUANG DESCRIBES SEVERAL MONTH H /O PAIN WITH PROLONGED WALKING >45MIN, RUNNING, AND SQUATTING /KNEELING TO THE FLOOR. 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 SHE DESCRIBES A TIGHTNESS THAT FEELS LIKE A BAND NOT ONLY ACROSS THE ANTERIOR KNEE AT THE PATELLA TENDON AREA BUT ALSO POSTERIORLY IN THE POPLITEAL FOSSA. SHE HAS A H/O MENISCAL DEBRIDEMENT IN 2016 AND REPORTS A GOOD REHAB EXPERIENCE POST SURGERY. SHE IS HERE TODAY TO WORK ON THE STRENGTH OF HER LE WELL FURTHER EVALUATE WHETHER SHE HAS ADDITIONAL MENISCAL INVOLVEMENT. 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 Preferred Name QUANG Objective Other/Pertinent Objective GAIT/FUNCTIONAL MOBILITY Single leg stance: 11 RIGHT/8 LEFT Squat: PAINFUL KNEE ROM L (-5)-0-132 HIP ROM : WFL LLE MMT: 4+/5 LEFT SPECIAL TEST Anterior drawer: (-) Patricia test: Posterior Drawer: (-) Valgus Test: (-) Varus Test: (-) Joint line tenderness: (+) MEDIAL Skinny test: (-) hyper flexion test: (+) Thessaly test: (-) Francisco Compression: (-) JOINT MOBILITY/PALPATION: MEDIAL JOINT LINE AND ANTERIOR KNEE (PATELLA TENDON/BURSA/ FAT PAD) PAIN TO PALPATION TX: SUPINE TKE X 10 HOLD 5 SEC SUPINE SLR X 10 SUPINE BRIDGE WITH ADD SQUEEZE X 10 HOLD 5 SIDELYING CLAM X 10 Assessment Assessment/Impression PATIENT IS A [address] MILLER REFERRED TO PHYSICAL THERAPY TO EVAL AND TX ACUTE LEFT KNEE PAIN; SHE HAS A H/O MENISCAL DEBRIDEMENT IN 2016 FOLLOWING A FALL AT WORK AND REPORTS A SUCCESSFUL REHAB EXPERIENCE. SHE HAS RECENTLY GIVEN (6MO) AND WITH AN INCREASE IN BODY WEIGHT THAT MAY FACTOR IN HER PAIN. SHE POINT TENDER ABOUT THE MEDIAL JOINT LINE AND ANTERIOR KNEE BUT DOES NOT HAVE A POSITIVE FRANCISCO TEST NOR Skinny. SHE DEMONSTRATES GOOD STRENGTH AND FAIR BALANCE NOTING HYPER EXTENSION IN BOTH KNEES W/FULL AROM. SHE DESCRIBES PAIN WITH ASCENDING STAIRS, WALKING >45MIN, AND STDG >20 NOTING INCREASED EDEMA BOTH ABOUT THE KNEE AND WITHIN THE JOINT SPACE. SHE REPORT FEELING A BAND AROUND HER KNEE AND ESPECIALLY FEELS THE TIGHTNESS POSTERIORLY IN POPLITEAL FOSSA WHEN HER KNEE IS FLARED UP AND WHEN SHE TRYS TO FLEX HER KNEE. WE DISCUSSED THE POSSIBILITY OF A PEREZ'S CYST AND OR AN ADDITIONAL MENISCAL TEAR AND THE LIKELIHOOD OF PATELLA TENDONITIS. OUR PLAN IS TO ADDRESS THE SYMPTOMS BY TRIALING IBUPROFEN FOR SEVERAL DAYS WELL PERFORMING HER HEP WHILE USING ULTRASOUND IN THE CLINIC TO INCREASE BLOOD FLOW AND PROMOTE HEALING . PATIENT IS APPROPRIATE OR SKILLED PHYSICAL THERAPY TO ADDRESS SYMPTOM MGMT, FUNCTIONAL STRENGTHENING, AND BALANCE. Primary Functional Limitations STAIRS COMMUNITY AMB AMB ON A VARIETY OF SURFACES KNEELING BENDING Plan of Care Rehabilitation Potential Good Physical Therapy Goals 1. DECREASE L KNEE PAIN TO </3 /10 WITH DAILY ACTIVITIES AND WITH THE PROGRESSION OF PHYSICAL THERAPY PROGRAM OVER THE NEXT 3-4 WEEKS 2. IMPROVE L KNEE PAINFREE ROM TO WNL OVER THE NEXT 4-6 WEEKS FOR IMPROVED GAIT MECHANICS, RETURN TO WITH EASE , AND RETURN TO ASCENDING/ DESCENDING STAIRS WITH RECIPROCAL GAIT 3. IMPROVE LE COMPLEX STRENGTH , BALANCE, AND STAMINA OVER THE NEXT 6-8 WEEKS FOR RETURN TO NORMAL GAIT FOR BOTH HOME/ WORK NAVIGATION WELL COMMUNITY AMBULATION ALONG WITH STANDING >10MIN WITHOUT A FLARE UP OF PAIN TO FULLY RETURN TO ALL FAMILY AND PEER CENTERED ACTIVITIES. 4. PATIENT WILL BE INDEPENDENT WITH HIS HEP WITHIN 8-12 WEEKS FOR PROGRESSION TOWARD ABOVE GOALS, ONGOING IMPROVEMENT OF PAIN/SYMPTOMS, ROM, STRENGTH, AND MOBILITY TO RETURN TO DAILY ACTIVITIES AND FAMILY CENTERED ACTIVITIES W/O FLARE UP OF PAIN/SYMPTOMS Coordination/Communication With Referral Source Treatment Plan/Direct Interventions Electrical Stimulation,Gait Training,Heat,Ice/Cold/ Vasopneumatic,Joint Mobilization,Manual Therapy, Neuromuscular Re-ed,Self-Care/ Home Management,Therapeutic Activities,Therapeutic Exercises Frequency/Duration 1W8 Patient Will Be Discharged From Therapy Completion of LTG(s), Independently Progressing Evaluation Billing Untimed Code Treatment Minutes 15 PT Eval No Charge No Complexity Low
== END 2023-12-01 16:31 | disposition home or self-care (01) ==
PROVIDERS: Visit Provider Student in an Organized Health Care Education/Training Program
DX: M25.562 Pain in left knee (principal); Z51.89 Encounter for other specified aftercare
CPT/HCPCS: 97035; 97110; 97140; 97161

== ENCOUNTER 2024-04-06 14:00 | Outpatient (RCR) | payer BC, SELFPAY | END 2024-07-21 10:00 | disposition home or self-care (01) | PROVIDERS: PCP Student in an Organized Health Care Education/Training Program; Visit Provider Student in an Organized Health Care Education/Training Program | DX: M22.2X2 Patellofemoral disorders, left knee (principal); M22.11 Recurrent subluxation of patella, right knee; M25.562 Pain in left knee; Z51.89 Encounter for other specified aftercare | CPT/HCPCS: 97110; 97161 ==

== ENCOUNTER 2024-05-17 17:08 | Outpatient (CLI) | payer BC, SELFPAY | END 2024-05-17 17:09 | disposition home or self-care (01) | LOC: MRI 17:08 | PROVIDERS: PCP Student in an Organized Health Care Education/Training Program; Visit Provider Physician Assistant Surgical | DX: M25.562 Pain in left knee (principal); S83.242A Other tear of medial meniscus, current injury, left knee, initial encounter; M94.262 Chondromalacia, left knee | CPT/HCPCS: 73721 ==